=== PATIENT | female | born 1975 | race Caucasian/White ===

== ENCOUNTER 2017-12-31 11:50 | Emergency (ER) | payer SELFPAY ==
[~2017-12-31] VITALS: Ht 149.9 cm; Wt 96.3 kg
[~2017-12-31 11:50] MED LIST: EXCETAB PO; HYDR-3533 PO; ROBA750T3 PO
[2017-12-31 11:57] VITALS: BP 151/87; PULSE 99; RESP 16; TEMP 98.1; O2SAT 92
[2017-12-31] MEDS ORDERED: IBUP1TAB7 PO (13:03)
[2017-12-31] MEDS ORDERED: AMOX500C PO (13:03)
--- NOTE | 2017-12-31 13:03 | PD ---
HPI Chief Complaint: ENT Complaint Time Seen by Provider: 12:49 Travel History International Travel<30 days: No Contact w/Intl Traveler<30days: No Traveled to known affect area: No History of Present Illness HPI This is a 42-year-old female here with bilateral ear pain 3 days. Reports subjective fever. Symptoms severity is moderate. No aggravating or alleviating factors. PFSH Past Medical History Diminished Hearing: No Kidney Stones: Yes Musculoskeletal: Yes (CHRONIC NECK AND BACK PAIN) Migraines: Yes Tetanus Vaccination: > 5 Years Influenza Vaccination: No ?: Not : 1 Para: 1 Past Surgical History Other Surgery: Yes (BREAST REDUCTION SURGERY) Social History Alcohol Use: No Tobacco Use: No Substance Use: No Allergies-Medications (Allergen,Severity, Reaction): Coded Allergies: sulfamethoxazole (Unverified Allergy, Severe, Rash, 12/31/17) trimethoprim (Unverified Allergy, Severe, Rash, 12/31/17) Reported Meds & Prescriptions Reported Meds & Active Scripts Active Review of Systems Except as stated in HPI: all other systems reviewed are Neg General / Constitutional: Positive: Fever Eyes: No: Visual changes HENT: Positive: Sore Throat, Congestion, Earache Cardiovascular: No: Chest Pain or Discomfort Respiratory: No: Shortness of Breath Gastrointestinal: No: Abdominal Pain Genitourinary: No: Dysuria Physical Exam Narrative GENERAL: Alert well-appearing 42-year-old female SKIN: Warm and dry. HEAD: Normocephalic. EYES: No injection or drainage. Ear/nose/throat: Bilateral TM erythema, bulging, loss of landmarks. No canal swelling or drainage. No mastoid tenderness. mild pharyngeal erythema, with mild tonsillar treat. No exudate. Uvula is midline. Airway is patent. NECK: Supple, trachea midline. No JVD or lymphadenopathy. CARDIOVASCULAR: Regular rate and rhythm without murmurs, gallops, or rubs. RESPIRATORY: Breath sounds equal bilaterally. No accessory muscle use. Data Data Last Documented VS Vital Signs Date Time Temp Pulse Resp B/P (MAP) Pulse Ox O2 Delivery O2 Flow Rate FiO2 12/31/17 11:57 98.1 99 16 151/87 (108) 92 MDM Medical Decision Making Medical Screen Exam Complete: Yes Emergency Medical Condition: Yes Differential Diagnosis Otitis media, pharyngitis, URI Narrative Course 42-year-old female here with bilateral otitis media. She is nontoxic appearing. She'll be treated with amoxicillin and ibuprofen. Diagnosis Primary Impression: Otitis media Qualified Codes: H66.90 - Otitis media, unspecified, unspecified ear Referrals: Primary Care Physician Additional Instructions: Medication as directed. Follow with her primary doctor. Scripts Ibuprofen (Ibuprofen) 800 Mg Tab 800 MG PO Q6HR Y for PAIN, #40 TAB 0 Refills Prov: Sahara Butterfield 12/31/17 Amoxicillin (Amoxicillin) 500 Mg Cap 500 MG PO TID for Infection for 10 Days, CAP 0 Refills Prov: Sahara Butterfield 12/31/17 Disposition: 01 DISCHARGE HOME Condition: Stable Sahara Butterfield Dec 31, 2017 13:03
== END 2017-12-31 13:29 | disposition home or self-care (01) ==
LOC: PHEFT 11:50
DX: H66.93 Otitis media, unspecified, bilateral (principal)
CPT/HCPCS: 99283